=== PATIENT | female | born 1955 | race Caucasian/White ===

== ENCOUNTER 2019-11-29 14:31 | Outpatient (CLI) | payer MEDICARE, OTHER, SELFPAY ==
--- NOTE | 2019-12-02 09:10 | WPDPFTINT ---
PFT Interpretation PFT Interpretation: This PFT met all criteria for ATS standards and reproducibility FEV/FVC post bronchodilator 73% FEV1 97% or 2.14 liters FVC 96% or 2.93 liters [id number]% was 53% with great improvement post brondhodilators TLC 90% RV 84% RV/TLC 36% DLCO 79% when adjusted for alveolar volume but not adjusted for hemoglobin Flow volume loops showed some expiratory coving. Impression: Mild small airway obstruction may be present. This pattern is suggestive or Asthma or reactive airway disease. If Asthma is in doubt, I would recommend a Methacholine Challenge Study. Compared to PFT in 2017 there has been no significant change. Clinical correlation is advised.
== END 2019-11-29 14:32 | disposition home or self-care (01) ==
PROVIDERS: PCP Internal Medicine; Visit Provider Clinical Nurse Specialist
DX: R06.02 Shortness of breath (principal); R94.2 Abnormal results of pulmonary function studies
CPT/HCPCS: 94060; 94726; 94729

== ENCOUNTER 2020-02-27 12:42 | Outpatient (CLI) | payer MEDICARE, OTHER, SELFPAY ==
--- NOTE | 2020-02-28 15:24 | P.PCNPFT_ITS ---
PFT Interpretation This is a methacholine challenge test. The test was performed and interpreted in accordance with the 1999 [place] [employer] guidelines. The test was performed with increasing doses of nebulized methacholine using a 2 minute tidal breathing protocol. The best post-methacholine FEV1 values were used to calculate the change from the post diluent FEV1. Findings: Baseline FEV1 2.20 L, 101% predicted. Post diluent FEV1 2.14 L Post 0.025 mg/ml methacholine FEV1 2.10 L, decreased 2% Post 0.25 mg/mL methacholine FEV1 2.11 L, decreased 2% Post 2.5 mg/mL methacholine FEV1 2.01 L, decreased 6% Post 10 mg/mL methacholine FEV1 1.93 L, decreased 10% Post 25 mg/mL methacholine FEV1 1.94 L, decreased 9% Post albuterol nebulization FEV1 2.02 L Impression: The PC20 is > 25 mg/ml which is categorized as normal bronchial responsiveness. There are no prior methacholine challenge studies for comparison
== END 2020-02-27 12:43 | disposition home or self-care (01) ==
PROVIDERS: PCP Internal Medicine; Visit Provider Clinical Nurse Specialist
DX: R06.02 Shortness of breath (principal)
CPT/HCPCS: 94070; J7674

== ENCOUNTER → 2020-04-10 07:01 | Outpatient (CLI) | payer MEDICARE, OTHER, SELFPAY ==
[2020-04-11 13:21] LABS: SARS-CoV-2 RNA PCR Negative
== END ==
PROVIDERS: PCP Internal Medicine; Visit Provider Clinical Nurse Specialist
DX: Z20.822 Contact with and (suspected) exposure to COVID-19 (principal); R19.7 Diarrhea, unspecified
CPT/HCPCS: C9803; U0003; U0005

== ENCOUNTER 2020-05-16 14:36 | Outpatient (CLI) | payer MEDICARE, OTHER, SELFPAY ==
--- NOTE | ~2020-05-16 | CT_ITS ---
EXAMINATION: CT sinus wo con DATE: 05/16/2020 15:21 INDICATION: Hypertrophy of the nasal turbinates TECHNIQUE: Computed tomography (CT) of the paranasal sinuses was performed without intravenous contra st. The dose-length product (DLP) was 305.77 mGy-cm. Iterative reconstruction was used. COMPARISON: None FINDINGS: The frontal sinuses are hypoplastic. There is otherwise normal development and pneumatizati on of the paranasal sinuses. The frontal, sphenoid, ethmoid, and maxillary sinuses are clear. The gilberto ateral ostiomeatal complexes are patent. Visualized soft tissues are unremarkable. There are 3.5 mm o f leftward deviation of the nasal septum. IMPRESSION: 1. 3.5 mm of leftward deviation of the nasal septum. Reviewed, dictated and finalized at location A.
--- NOTE | ~2020-05-16 | CT_ITS ---
EXAMINATION: CT diagnostic chest w con DATE: 05/16/2020 15:21 INDICATION: Shortness of breath and chest pain TECHNIQUE: Transaxial computed tomographic images of the chest were obtained after the administration of 75 cc of Omnipaque 350 intravenous contrast. The dose-length product (DLP) was 210.92 mGy-cm. Ite rative reconstruction was used. COMPARISON: 02/26/2006 FINDINGS: There is mild dependent atelectasis. The lungs are free of focal airspace opacities. There is no pleural effusion or pneumothorax. No pathologically enlarged thoracic lymph nodes are identifie d. The heart size is normal. Calcified coronary artery atherosclerosis is noted. The liver is diffuse ly low in attenuation when compared with the spleen, consistent with hepatic steatosis. There is mode rate thoracic spondylosis. IMPRESSION: 1. . No acute cardiopulmonary abnormality. Reviewed, dictated and finalized at location A.
[2020-05-16 15:16] LABS: Estimated Glomerular Filt Rate > 60
== END 2020-05-16 14:37 | disposition home or self-care (01) ==
PROVIDERS: PCP Internal Medicine; Visit Provider Clinical Nurse Specialist
DX: J34.2 Deviated nasal septum (principal); J34.3 Hypertrophy of nasal turbinates; J34.89 Other specified disorders of nose and nasal sinuses; R09.81 Nasal congestion; R06.02 Shortness of breath
CPT/HCPCS: 70486; 71260; Q9967

== ENCOUNTER 2020-12-10 12:45 | Outpatient (CLI) | payer MEDICARE, OTHER, SELFPAY ==
--- NOTE | 2020-12-11 19:34 | WPDSIXMINUTE ---
Six Minute Walk Procedure Procedure Performed Pulmonary Stress Test (6 min walk) Six Minute Walk This 6 minute walk test was carried out with the patient breathing ambient air. The pretest oxyhemoglobin saturation was 91%. The patient was able to walk 518 m with no stops during testing. The oxyhemoglobin saturation during the walk remained over 95%. Impression: No evidence of oxyhemoglobin desaturation on this testing.
== END 2020-12-10 12:46 | disposition home or self-care (01) ==
LOC: ANHPFT 12:46
PROVIDERS: PCP Internal Medicine; Visit Provider Internal Medicine Pulmonary Disease
DX: J40 Bronchitis, not specified as acute or chronic (principal)
CPT/HCPCS: 94618

== ENCOUNTER 2021-07-16 12:12 | Emergency (ER) | payer MEDICARE, OTHER, SELFPAY ==
--- NOTE | ~2021-07-16 | XR_ITS ---
XR knee RT 3V 07/16/2021 13:39 Indication: Right knee pain after fall Procedure: 3 views right knee Comparison: No prior studies for comparison. Findings: There is a vertically oriented fracture lateral aspect of the patella. There is a joint eff usion. Mild soft tissue swelling. Mild osteoarthritis of the right knee. Impression: 1: Minimally displaced vertical fracture lateral aspect of the patella. Reviewed, dictated and finalized at location B. Impression: 1: Minimally displaced vertical fracture lateral aspect of the patella.
--- NOTE | ~2021-07-16 | XR_ITS ---
EXAMINATION: XR shoulder RT min 2V DATE: 07/16/2021 13:39 INDICATION: Right shoulder pain. Fall. TECHNIQUE: 4 views of right shoulder were obtained. COMPARISON: None. FINDINGS: Bone alignment is normal. No fracture. There is mild osteoarthritis of glenohumeral joint a nd acromioclavicular joint. IMPRESSION: 1. Mild polyarticular osteoarthritis. Reviewed, dictated and finalized at location A.
--- NOTE | ~2021-07-16 | XR_ITS ---
XR hand LT min 3V 07/16/2021 13:39 Indication: Left hand pain after fall. Fifth metacarpal pain. Procedure: 3 views left hand Comparison: No prior studies for comparison. Findings: No acute fracture or traumatic malalignment. There is polyarticular osteoarthritis. No foca l soft tissue abnormality. No foreign bodies. Impression: 1: No acute fracture. Reviewed, dictated and finalized at location B. Impression: 1: No acute fracture.
[2021-07-16 12:29] VITALS: BP 135/81; PULSE 87; RESP 16; TEMP 36.6; O2SAT 94
[2021-07-16] MEDS: HYDROcodone/acetaminophen (*CRX) 5-325 MG TABLET 1 TAB PO (15:11)
--- NOTE | 2021-07-16 18:58 | ED.FALL ---
HPI - Fall General Chief Complaint: Fall Stated Complaint: Fall yest - Right knee, left hand, & head injury Time Seen by Provider: 07/16/21 14:12 History of Present Illness HPI Narrative: 66-year-old female presents today with complaints of right knee pain after a fall that she sustained yesterday. Patient states she was walking and not ill fitting wet shoes when she fell. Patient states she had a brace on her left knee. Currently with pain to the right knee, left hand, and right shoulder. Patient with full range of motion noted to all extremities. Patient has tried Tylenol without improvement. Related Data Home Medications Medication Instructions Recorded Confirmed epinephrine 0.3 mg/0.3 mL 0.3 mg IM ONCE 01/25/19 05/26/21 injection, auto-injector (EpiPen) sertraline 25 mg tablet 25 mg PO DAILY 05/22/19 05/26/21 cholecalciferol (vitamin D3) 50 50 mcg PO DAILY 08/27/20 05/26/21 mcg (2,000 unit) capsule magnesium 250 mg tablet 250 mg PO DAILY 08/27/20 05/26/21 omeprazole 20 mg capsule,delayed 20 mg PO BID 11/18/20 05/26/21 release Allergies Allergy/AdvReac Type Severity Reaction Status Date / Time Penicillins Allergy Severe Anaphylactic Verified 07/16/21 14:11 Shock Sulfa (Sulfonamide Allergy Intermediate Itching Verified 07/16/21 14:11 Antibiotics) procaine [From Novocain] Allergy Swelling Verified 07/16/21 14:11 Review of Systems Review of Systems: CONSTITUTIONAL: Denies fever, chills, or sweats. EYES: Denies visual changes, redness, or discharge. ENT: Denies rhinorrhea, congestion, sore throat, or otalgia. CARDIOVASCULAR: Denies chest pain, palpitations, or edema. RESPIRATORY: Denies cough or dyspnea. GASTROINTESTINAL: Denies abdominal pain, nausea, vomiting, or diarrhea. GENITOURINARY: Denies dysuria or hematuria. SKIN: Denies rash or itching. MUSCULOSKELETAL: Right knee pain, left wrist pain, right shoulder pain status post fall. NEUROLOGIC: Denies headache, numbness, dizziness, or weakness. PSYCHIATRIC: Denies anxiety or depression. [facility] Past Medical History Medical History Anxiety with depression Bronchitis Coronary artery disease GERD (gastroesophageal reflux disease) HTN (hypertension) Hypothyroidism Mumps Nasal congestion due to prolonged use of decongestants Thyroid disorder Vaginal disorder Surgical History Surgical History History of hysterectomy History of tonsillectomy Family History Family History Father Cerebrovascular accident Family history of chronic obstructive pulmonary disease Family history of diabetes mellitus in first degree relative Hypertension Diabetes mellitus Mother Cerebrovascular accident Hypertension Daughter Cancer of unknown origin Hypothyroidism Other Family history of cardiovascular disease Family history of coronary artery disease Family history of lymphoma Social History Social History Smoking status: Never smoker Alcohol intake: current Alcohol use details: occasional Exam Narrative: GENERAL: Well-appearing, well-nourished, and in no acute distress. HEAD: Normocephalic, atraumatic. EYES: PERRLA and EOMI. NECK: Supple. No adenopathy or masses. No carotid bruits or JVD CHEST: Clear to auscultation. No respiratory distress. No wheezes rales or rhonchi HEART: Regular rate and rhythm. No murmur heard. Normal peripheral pulses. ABDOMEN: Soft, nontender, nondistended, normal active bowel sounds. EXTREMITIES: Right knee swelling with ecchymosis. Tender to palpation. Normal range of motion. No edema. SKIN: Warm, dry, no rash. NEURO: No focal deficits. Alert and oriented x3. PSYCH: Normal mood and affect. Course Course Emergency Course: Results reviewed with patient. Ortho consulted. Patient s
== END 2021-07-16 15:57 | disposition home or self-care (01) ==
PROVIDERS: Emergency Provider Nurse Practitioner Family; PCP Internal Medicine
DX: S82.001A Unspecified fracture of right patella, initial encounter for closed fracture (principal); M79.642 Pain in left hand; M25.511 Pain in right shoulder; I10 Essential (primary) hypertension; E03.9 Hypothyroidism, unspecified; W18.39XA Other fall on same level, initial encounter
CPT/HCPCS: 73030; 73130; 73562; 99284; A9270

== ENCOUNTER 2021-08-07 16:17 | Emergency (ER) | payer MEDICARE, OTHER, SELFPAY ==
--- NOTE | ~2021-08-07 | XR_ITS ---
XR knee LT min 4V DATE: 08/07/2021 16:51 INDICATION: Fall. Generalized left knee pain. TECHNIQUE: 4 views including crosstable lateral COMPARISON: None FINDINGS: No fracture or dislocation or joint effusion. No periosteal reaction or bone destruction. N o radiopaque intra-articular loose body or chondrocalcinosis. There is prominent joint space narrowin g and periarticular spurring of the medial compartment consistent with prominent osteoarthritis IMPRESSION: Prominent medial compartment osteoarthritis No fracture or dislocation or joint effusion Reviewed, dictated and finalized at location A.
--- NOTE | ~2021-08-07 | XR_ITS ---
EXAMINATION: XR hand RT min 3V INDICATION: Right hand pain, initial encounter TECHNIQUE: Three views of the right hand are obtained. COMPARISON: None available FINDINGS: There is an acute, traumatic, closed, oblique neck fracture of the fifth metacarpal. The di stal fracture fragment is laterally displaced approximately 1 mm. No additional fracture is identifie d. There is mild osteoarthritis of multiple interphalangeal joints. Soft tissue swelling is seen near the fifth metacarpal fracture. IMPRESSION: 1. Acute fifth metacarpal neck fracture with minimal displacement. Reviewed, dictated and finalized at location F.
--- NOTE | 2021-08-07 16:19 | ED.UPPEXIN ---
HPI - Extremity Injury (Upper) General Chief Complaint: Extremity Injury, Upper Stated Complaint: right hand injury Time Seen by Provider: 08/07/21 16:21 Source: patient and RN notes reviewed History of Present Illness HPI narrative: Patient is a 66-year-old female who presents the urgent care with complaints of left knee pain and right hand pain. Patient states that she tripped over a Vine on Tuesday falling onto the concrete. Patient states that she fractured her right patella sometime ago and has been following with Dr. Sandoval. Patient states her repeat x-rays on the . Patient states she was trying to keep the blunt of the fall off of the right knee and therefore caught herself with the right hand, landing on the left knee. Patient has been wearing a brace to the left knee as well as taking Tylenol and using ice for comfort of the right hand. Patient is right-hand dominant and has continued to use it normally since the incident. No other acute complaints. Denies hitting her head or any loss of consciousness from the fall. No acute distress noted. Patient aware of the plan of care. Some parts of this dictation were generated by voice recognition software and may contain typographical and/or grammatical inaccuracies. Related Data Home Medications Medication Instructions Recorded Confirmed epinephrine 0.3 mg/0.3 mL 0.3 mg IM ONCE 01/25/19 07/21/21 injection, auto-injector (EpiPen) cholecalciferol (vitamin D3) 50 50 mcg PO DAILY 08/27/20 07/21/21 mcg (2,000 unit) capsule magnesium 250 mg tablet 250 mg PO DAILY 08/27/20 07/21/21 omeprazole 20 mg capsule,delayed 20 mg PO BID 11/18/20 07/21/21 release atomoxetine 25 mg capsule 1 cap PO HS 08/07/21 08/07/21 sertraline 100 mg tablet 1.5 tablet PO DAILY 08/07/21 08/07/21 Allergies Allergy/AdvReac Type Severity Reaction Status Date / Time Penicillins Allergy Severe Anaphylactic Verified 08/07/21 16:26 Shock Sulfa (Sulfonamide Allergy Intermediate Itching Verified 08/07/21 16:26 Antibiotics) procaine [From Novocain] Allergy Swelling Verified 08/07/21 16:26 Review of Systems Review of Systems: CONSTITUTIONAL: Denies fever, chills, or sweats. EYES: Denies visual changes, redness, or discharge. ENT: Denies rhinorrhea, congestion, sore throat, or otalgia. CARDIOVASCULAR: Denies chest pain, palpitations, or edema. RESPIRATORY: Denies cough or dyspnea. GASTROINTESTINAL: Denies abdominal pain, nausea, vomiting, or diarrhea. GENITOURINARY: Denies dysuria or hematuria. SKIN: Denies rash or itching. MUSCULOSKELETAL: Reports of right hand pain/bruising and left knee pain NEUROLOGIC: Denies headache, numbness, or weakness. All other systems reviewed are negative, except as documented in HPI. [facility] Past Medical History Medical History (Updated 08/07/21 @ 17:21 by KARRIE Tomlinson) Angina pectoris with normal coronary arteriogram Anxiety and depression Anxiety with depression Bronchitis Cellulitis Chest pain in adult Chronic bilateral low back pain without sciatica Chronic osteoarthritis Coronary artery disease Essential (primary) hypertension Fatigue GERD (gastroesophageal reflux disease) Heart beat abnormality History of anesthesia problem Hoarseness HTN (hypertension) Hyperlipidemia, unspecified Hypersomnia Hypothyroidism Hypothyroidism (acquired) Impaired glucose tolerance (oral) Irritation of eye Left leg claudication Leg pain, left Major depressive disorder, single episode, unspecified Mumps Muscle cramp Nasal congestion due to prolonged use of decongestants JUNG (obstructive sleep apnea) Overweight Postmenopausal Rectocele Screening for breast cancer Serum potassium elevated Thyroid disorder Urge incontinence Urinary frequency Urinary symptom or sign Vaginal disorder Vaginal irritation Vertigo Weight gain Surgical History Surgical History (Updated 07/22/21 @ 11:40 by Jonna Watson) H/O skin graft [id number] History
[2021-08-07 16:24] VITALS: BP 123/81; PULSE 81; RESP 16; TEMP 36.6; O2SAT 97
[2021-08-07 16:28] VITALS: BP 123/81; PULSE 81; RESP 16; TEMP 36.6; O2SAT 97
== END 2021-08-07 17:45 | disposition home or self-care (01) ==
PROVIDERS: Emergency Provider Nurse Practitioner Family; PCP Internal Medicine
DX: S62.336A Displaced fracture of neck of fifth metacarpal bone, right hand, initial encounter for closed fracture (principal); W01.0XXA Fall on same level from slipping, tripping and stumbling without subsequent striking against object, initial encounter; F41.9 Anxiety disorder, unspecified; F32.A Depression, unspecified; I25.10 Atherosclerotic heart disease of native coronary artery without angina pectoris; I10 Essential (primary) hypertension; E78.5 Hyperlipidemia, unspecified; E03.9 Hypothyroidism, unspecified; G47.33 Obstructive sleep apnea (adult) (pediatric); M19.90 Unspecified osteoarthritis, unspecified site
CPT/HCPCS: 29125; 73130; 73564; 99214; A4565; G0463

== ENCOUNTER 2021-08-17 13:46 | Outpatient (CLI) | payer MEDICARE, OTHER, SELFPAY ==
--- NOTE | ~2021-08-17 | XR_ITS ---
XR knee RT 3V 08/17/2021 14:03 Indication: Follow-up patellar fracture Procedure: 3 views right knee Comparison: Comparison to multiple prior studies sequentially, with oldest reviewed study dated 10/2021. Findings: Stable alignment of the patella fracture involving the lateral aspect of the patella vertic ally. No significant change to alignment. Mild osteoarthritis. No significant joint effusion. Impression: 1: Stable alignment of mildly displaced vertically oriented lateral patellar fracture. Reviewed, dictated and finalized at location A. Impression: 1: Stable alignment of mildly displaced vertically oriented lateral patellar fr acture.
== END 2021-08-17 13:47 | disposition home or self-care (01) ==
PROVIDERS: PCP Internal Medicine; Visit Provider Orthopaedic Surgery
DX: S82.091A Other fracture of right patella, initial encounter for closed fracture (principal); X58.XXXA Exposure to other specified factors, initial encounter
CPT/HCPCS: 73562

== ENCOUNTER 2021-09-28 12:55 | Outpatient (CLI) | payer MEDICARE, OTHER, SELFPAY ==
--- NOTE | ~2021-09-28 | XR_ITS ---
EXAMINATION: XR knee RT 3V DATE: 09/28/2021 13:10 INDICATION: Patella fracture TECHNIQUE: Anteroposterior, sunrise and crosstable lateral views of the right knee were obtained COMPARISON: None. FINDINGS: No significant change in approximately 3 mm separation of a sagittally oriented intra-articular fract ure plane involving the lateral aspect of the lateral patellar facet. No evident productive changes. Apparent . No new fractures identified. Small marginal osteophytes at the medial compartment. No evid ent joint space narrowing although this can be underestimated on nonweightbearing imaging. No signifi cant right knee joint effusion. Soft tissues are unremarkable.. IMPRESSION: 1. No significant interval change in 3 mm lateral displacement of a sagittally oriented fracture at t he lateral patellar facet. Reviewed, dictated and finalized at location A. IMPRESSION: 1. No significant interval change in 3 mm lateral displacement of a sagittally oriented fracture at the lateral patellar facet.
== END 2021-09-28 12:56 | disposition home or self-care (01) ==
LOC: ANHBWCIMG 12:57
PROVIDERS: PCP Internal Medicine; Visit Provider Orthopaedic Surgery
DX: M25.561 Pain in right knee (principal)
CPT/HCPCS: 73562